=== PATIENT | male | born 1970 | race Caucasian/White ===

== ENCOUNTER 2019-04-02 12:44 | Inpatient (IN) | payer OTHER ==
[2019-04-02 15:27] VITALS: BMI 31.2
--- NOTE | 2019-04-02 17:20 | HP ---
CIWA Score Nausea/Vomitin-Mild Nausea/No Vomiting Muscle Tremors: 3 Anxiety: 4-Mod. Anxious/Guarded Agitation: 2 Paroxysmal Sweats: 3 Orientation: 0-Oriented Tacttile Disturbances: 0-None Auditory Disturbances: 0-None Visual Disturbances: 0-None Headache: 3-Moderate CIWA-Ar Total Score: 16 - Admission Criteria OASAS Guidelines: Admission for Medically Managed Detox: Requires at least one of the followin. CIWA greater than 12 2. Seizures within the past 24 hours 3. Delirium tremens within the past 24 hours 4. Hallucinations within the past 24 hours 5. Acute intervention needed for co occurring medical disorder 6. Acute intervention needed for co occurring psychiatric disorder 7. Severe withdrawal that cannot be handled at a lower level of care (continued vomiting, continued diarrhea, abnormal vital signs) requiring intravenous medication and/or fluids 8. Admission [facility] Chief Complaint: Alcohol withdrawal symptoms Allergies/Adverse Reactions: Allergies Allergy/AdvReac Type Severity Reaction Status Date / Time Fish Containing Products Allergy Severe Swelling Verified 04/02/19 14:36 Penicillins Allergy Severe Hives Verified 04/02/19 14:36 History of Present Illness: 48 years old male with a long history of alcohol dependence (since age 11) is seeking admission to detox. Patient reports that he has been to multiple detox facilities, last at [facility]. He reports 10 years of sobriety (while in shelter for attempted murder). He has medical history of Alcohol related seizures, Neuropathy, hyperlipidemia and psych history of depression and bipolar disorder. He denies suicide attempt and suicidal ideation at this time. He reports that he is homeless and lives [address]. He reports DT's, alcohol related seizures and blackout. Last blackout was on 03/30/2019. Last seizure activity was in February 2019. This is his first admission to [facility]. - Ebola screening Have you traveled outside of the country in the last 21 days: No Have you had contact with anyone from an Ebola affected area: No - Review of Systems Constitutional: Chills, Malaise, Night Sweats, Changes in sleep, Weakness EENT: reports: Nose Congestion Respiratory: reports: No Symptoms reported Cardiac: reports: No Symptoms Reported GI: reports: Nausea, Poor Appetite, Poor Fluid Intake : reports: No Symptoms Reported Musculoskeletal: reports: Back Pain, Muscle Pain Integumentary: reports: Dryness, Flushing Neuro: reports: Headache, Tremors Endocrine: reports: No Symptoms Reported Hematology: reports: No Symptoms Reported Psychiatric: reports: Mood/Affect Appropiate, Anxious, Depressed Other Systems: Reviewed and Negative Patient History - Patient Medical History Hx Anemia: No Hx Asthma: No Hx Chronic Obstructive Pulmonary Disease (COPD): No Hx Cancer: No Hx Cardiac Disorders: No Hx Congestive Heart Failure: No Hx Hypertension: No Hx Hypercholesterolemia: Yes (Not on medication) Hx Pacemaker: No HX Cerebrovascular Accident: No Hx Seizures: No Hx Diabetes: No Hx Gastrointestinal Disorders: No Hx Liver Disease: No Hx Genitourinary Disorders: No Hx Sexually Transmitted Disorders: No Hx Renal Disease (ESRD): No Hx Thyroid Disease: No Hx Human Immunodeficiency Virus (HIV): No (Negative 2018) Hx Hepatitis C: No Hx Depression: Yes (Lexapro) Hx Suicide Attempt: No (Denies suicide attempt and suicidal ideation at this time) Hx Bipolar Disorder: Yes (Abilify) Hx Schizophrenia: No - Patient Surgical History Past Surgical History: Yes Hx Orthopedic Surgery: Yes (Spinal cord surgery January 2018) - PPD History Previous Implant?: Yes Documented Results: Negative w/o proof Implanted On Prior [facility] Admission?: Yes PPD to be Administered?: Yes - Reproductive History Patient is a Female of Child Bearing Age (11 -55 yrs old): No (male) - Smoking Cessation Smoking history: Current every day smoker Have you smoked in the past 12 months: Yes Aproximately how many cigarettes per day: 20 Hx Chewing Tobacco Use: No Initiated information on smoking cessation: Yes 'Breaking Loose' booklet given: 04/02/19 - Substances abused Alcohol Substance route: Oral Frequency: Daily Amount used: 2 pints of vodka, 12 pack beer Age of first use: 11 Date of last use: 04/02/19 Admission Physical Exam [facility] - Vital Signs Vital Signs: Vital Signs - 24 hr 04/02/19 15:20 Temperature 98.3 F Pulse Rate 107 H Respiratory 18 Rate Blood Pressure 112/69 - Physical General Appearance: Yes: Severe Distress, Alcohol on Breath, Tremorous, Sweating , Anxious HEENTM: Yes: Within Normal Limits Respiratory: Yes: Lungs Clear, Normal Breath Sounds, No Respiratory Distress Neck: Yes: Within Normal Limits Breast: Yes: Breast Exam Deferred Cardiology: Yes: Tachycardia Abdominal: Yes: Normal Bowel Sounds Genitourinary: Yes: Within Normal Limits Musculoskeletal: Yes: Within Normal Limits Extremities: Yes: Tremors Integumentary: Yes: Warm Lymphatic: Yes: Within Normal Limits - Diagnostic (1) Alcohol dependence with withdrawal, uncomplicated Current Visit: Yes Status: Acute (2) Nicotine dependence Current Visit: Yes Status: Chronic Qualifiers: Nicotine product type: cigarettes Substance use status: in withdrawal Qualified Code(s): F17.213 - Nicotine dependence, cigarettes, with withdrawal (3) Hyperlipidemia Current Visit: Yes Status: Chronic Qualifiers: Hyperlipidemia type: unspecified Qualified Code(s): E78.5 - Hyperlipidemia , unspecified (4) Neuropathy Current Visit: Yes Status: Chronic Cleared for Admission [facility] - Detox or Rehab [facility] Level of Care: Medically Managed Detox Regimen/Protocol: Valium Claeared for Rehab Admission: No Inpatient Rehab Admission - Rehab Decision to Admit Inpatient rehab admission?: No
[2019-04-02] MEDS ORDERED: MAGNESIUM HYDROX 2400MG/30ML ORAL SUSPENSION 30 ML CUP PO PRN (17:41)
[2019-04-02] MEDS ORDERED: MAG HYDROX/AL HYDROX/SIMETH 30 ML UNIT-DOSE CUP PO PRN (17:41)
[2019-04-02] MEDS ORDERED: hydrOXYzine PAMOATE 25 MG CAPSULE (FP) PO PRN (17:41)
[2019-04-02] MEDS ORDERED: BISMUTH SUBSALICYLATE 524 MG/30 ML UD PO PRN (17:41)
[2019-04-02] MEDS ORDERED: MENTHOL/PHENOL 1 EACH UD MM PRN (17:41)
[2019-04-02] MEDS ORDERED: METHOCARBAMOL 500 MG TABLET PO PRN (17:41)
[2019-04-02] MEDS ORDERED: ACETAMINOPHEN 325 MG TABLET (FP) PO PRN ×2 (17:41)
[2019-04-02] MEDS ORDERED: NICOTINE POLACRILEX 2 MG GUM BUC PRN (17:41)
[2019-04-02] MEDS ORDERED: MAGNESIUM CITRATE 300 ML BOTTLE PO PRN (17:41)
[2019-04-02] MEDS ORDERED: MELATONIN 5 MG TABLETS PO PRN (17:41)
[2019-04-02] MEDS ORDERED: IBUPROFEN 400 MG TABLET (FP) PO PRN (17:41)
[2019-04-02] MEDS ORDERED: diazePAM 5 MG TABLET PO ONE (18:15)
[2019-04-02] MEDS: GABAPENTIN 300 MG CAPSULE (FP) PO SCH (23:27)
[2019-04-02] MEDS: THIAMINE HCL 100 MG TABLET (FP) PO SCH (23:28)
[2019-04-02] MEDS: diazePAM 5 MG TABLET PO SCH (23:28)
[2019-04-03] MEDS: diazePAM 5 MG TABLET PO PRN (02:58)
[2019-04-03] MEDS: GABAPENTIN 300 MG CAPSULE (FP) PO SCH ×3 (05:32→22:00)
[2019-04-03] MEDS: diazePAM 5 MG TABLET PO SCH ×3 (05:33→22:01)
--- NOTE | 2019-04-03 09:32 | PN ---
S CIWA - CIWA Score Nausea/Vomitin-No Nausea/No Vomiting Muscle Tremors: 2 Anxiety: 3 Agitation: 2 Paroxysmal Sweats: 1-Minimal Palms Moist Orientation: 0-Oriented Tacttile Disturbances: 2-Mild Itch/Numbness/Burn Auditory Disturbances: 0-None Visual Disturbances: 0-None Headache: 0-None Present CIWA-Ar Total Score: 10 BHS Progress Note (SOAP) Subjective: Patient with hx of alcohol dependence on Valium detox protocol c/o anxious, interrupted sleep, denies pain at this time Objective: 04/03/19 09:31 Vital Signs Temperature 97.9 F 04/03/19 09:22 Pulse Rate 102 H 04/03/19 09:22 Respiratory Rate 18 04/03/19 09:22 Blood Pressure 143/82 04/03/19 09:22 O2 Sat by Pulse Oximetry (%) labs pending Assessment: 04/03/19 09:31 Aox3 no acute distress full ROM ambulating in the unit withdrawal sx Plan: increase PO fluids continue detox continue to monitor
--- NOTE | 2019-04-03 09:52 | CONSULT ---
[facility] Psychiatric Consult - Data Date of interview: 04/03/19 Admission source: [facility] Identifying data: Mr Reyes is a 48 years old male, father of 2 sons, unemployed receiving food stamp, homeless seeking detox treatment alcohol Substance Abuse History: Reports history of alcohol use. Refer to addiction counselor's summary for further information Medical History: Significant dyslipidemia, neuropathy, history of alcohol related seizure, surgeries(spinal cord in 2018, fracture right ankle). Smokes cigarettes 1 ppd Psychiatric History: Reports that his first psychiatric contact occured at age 15 when he was admitted to [facility] in [place], [place], diagnosed with Bipolar Disorder and started on psychotropic medications. Claims that he was tried on different medications and finally discharged on [place]. Reports that he was never compliant with outpatient psychiatric treatment. Told junior technical writer that while admitted at [facility] for pneumonia, he requested to see a psychiatrist and he was started on Lexapro and Abilify. He was discharged to [facility] where he was continued on both medications. He said that following discharge from [facility], he stopped taking Abilify 5 mg/day because his insurance coverage refused to pay for it. He is only taking Lexapro 20 mg/day. Denies previous suicidal attempt. At present, denies experiencing psychotic, manic or depressive symptoms, S/H ideations. Requests to be ordered Seroquel to which he responded well in the past Physical/Sexual Abuse/Trauma History: Denies history of abuse as a child or DV relationship as an adult Mental Status Exam - Mental Status Exam Alert and Oriented to: Time, Place, Person Cognitive Function: Fair Patient Appearance: Disheveled Mood: Hopeful, Euthymic Patient Behavior: Cooperative Speech Pattern: Clear Voice Loudness: Normal Thought Process: Intact, Goal Oriented Thought Disorder: Not Present Hallucinations: Denies Suicidal Ideation: Denies Homicidal Ideation: Denies Insight/Judgement: Poor Sleep: Well Appetite: Good Muscle strength/Tone: Normal Gait/Station: Normal Psychiatric Findings - Problem List ([place] 1, 2,3) (1) Bipolar disorder Current Visit: Yes Status: Chronic (2) Alcohol dependence with withdrawal, uncomplicated Current Visit: Yes Status: Acute (3) Nicotine dependence Current Visit: Yes Status: Chronic Qualifiers: Nicotine product type: cigarettes Substance use status: in withdrawal Qualified Code(s): F17.213 - Nicotine dependence, cigarettes, with withdrawal (4) Hyperlipidemia Current Visit: Yes Status: Chronic Qualifiers: Hyperlipidemia type: unspecified Qualified Code(s): E78.5 - Hyperlipidemia , unspecified (5) Neuropathy Current Visit: Yes Status: Chronic (6) Alcohol related seizure Current Visit: Yes Status: Resolved - Initial Treatment Plan Initial Treatment Plan: 1) Continue Lexapro 20 mg po daily. 2) Start Seroquel 100 mg po HS. 3) Continue inpatient detoxification
[2019-04-03] MEDS: NICOTINE 21 MG/24 HOURS TOPICAL PATCH TD SCH (09:59)
[2019-04-03] MEDS: PRENATAL VITAMINS W/ FOLIC ACID TABLET (FP) PO SCH (09:59)
[2019-04-03] MEDS: ESCITALOPRAM OXALATE 10 MG TABLET (FP) PO SCH (10:31)
[2019-04-03 10:43] LABS: HEMATOCRIT 36.2 % (35.4-49); HEMOGLOBIN 11.5 GM/dL (11.7-16.9); MCH 29.3 pg (25.7-33.7); MCHC 31.8 g/dl (32.0-35.9); MEAN CELL VOLUME 92.2 fl (80-96); MEAN PLT VOLUME 7.3 fl (7.5-11.1); PLATELET COUNT 447 K/MM3 (134-434); RBC 3.93 M/mm3 (4.00-5.60); RDW 15.2 % (11.9-15.9); WHITE BLOOD COUNT 12.5 K/mm3 (4.0-10.0)
[2019-04-03 10:57] LABS: ALBUMIN 2.9 g/dl (3.4-5.0); BILIRUBIN,TOTAL 0.3 mg/dL (0.2-1); BLOOD UREA NITROGEN 21.3 mg/dL (7-18); CALCIUM 8.4 mg/dL (8.5-10.1); CREATININE 0.8 mg/dL (0.55-1.3); POTASSIUM 4.3 mmol/L (3.5-5.1); TOT PROT 6.2 g/dl (6.4-8.2)
--- NOTE | 2019-04-03 11:54 | EKG ---
Test Reason : Blood Pressure : / mmHG Vent. Rate : 095 BPM Atrial Rate : 095 BPM P-R Int : 174 ms QRS Dur : 076 ms QT Int : 346 ms P-R-T Axes : 059 060 071 degrees QTc Int : 434 ms NORMAL SINUS RHYTHM NORMAL ECG NO PREVIOUS ECGS AVAILABLE Confirmed by MORENA LEVINE MD ([id number]) on 04/03/2019 11:53:38 AM Referred By: Confirmed By:MORENA LEVINE MD
[2019-04-03] MEDS ORDERED: QUEtiapine FUMARATE 100 MG TABLET (FP) PO SCH (22:00)
[2019-04-03] MEDS: THIAMINE HCL 100 MG TABLET (FP) PO SCH (22:01)
[2019-04-04] MEDS ORDERED: diazePAM 5 MG TABLET PO SCH (06:00)
[2019-04-04] MEDS: GABAPENTIN 300 MG CAPSULE (FP) PO SCH ×2 (07:43→14:04)
[2019-04-04] MEDS: NICOTINE 21 MG/24 HOURS TOPICAL PATCH TD SCH (09:42)
[2019-04-04] MEDS: PRENATAL VITAMINS W/ FOLIC ACID TABLET (FP) PO SCH (09:42)
[2019-04-04] MEDS: ESCITALOPRAM OXALATE 10 MG TABLET (FP) PO SCH (09:42)
[2019-04-04] MEDS: diazePAM 5 MG TABLET PO PRN (09:45)
[2019-04-04 10:09] VITALS: BP 137/89; PULSE 95; TEMP 98.6
[2019-04-04 10:45] LABS: HEMATOCRIT 38.7 % (35.4-49); HEMOGLOBIN 12.4 GM/dL (11.7-16.9); MCH 29.8 pg (25.7-33.7); MEAN CELL VOLUME 93.2 fl (80-96); MEAN PLT VOLUME 7.5 fl (7.5-11.1); PLATELET COUNT 378 K/MM3 (134-434); RBC 4.16 M/mm3 (4.00-5.60); RDW 15.2 % (11.9-15.9); WHITE BLOOD COUNT 10.7 K/mm3 (4.0-10.0)
--- NOTE | 2019-04-04 11:05 | PN ---
[facility] CIWA - CIWA Score Nausea/Vomitin-No Nausea/No Vomiting Muscle Tremors: None Anxiety: 2 Agitation: 1-Slight > Activity Paroxysmal Sweats: 1-Minimal Palms Moist Orientation: 0-Oriented Tacttile Disturbances: 1-Very Mild Itch/Numbness Auditory Disturbances: 0-None Visual Disturbances: 0-None Headache: 0-None Present CIWA-Ar Total Score: 5 BHS Progress Note (SOAP) Subjective: c/o of anxious , body aches, reports improve in sleep Objective: 04/04/19 11:01 Vital Signs Temperature 98.6 F 04/04/19 10:08 Pulse Rate 95 H 04/04/19 10:08 Respiratory Rate 18 04/04/19 10:08 Blood Pressure 137/89 04/04/19 10:08 O2 Sat by Pulse Oximetry (%) Laboratory Last Values WBC 10.7 K/mm3 (4.0-10.0) H 04/04/19 07:45 RBC 4.16 M/mm3 (4.00-5.60) 04/04/19 07:45 Hgb 12.4 GM/dL (11.7-16.9) 04/04/19 07:45 Hct 38.7 % (35.4-49) 04/04/19 07:45 MCV 93.2 fl (80-96) 04/04/19 07:45 MCH 29.8 pg (25.7-33.7) 04/04/19 07:45 MCHC 32.0 g/dl (32.0-35.9) 04/04/19 07:45 RDW 15.2 % (11.9-15.9) 04/04/19 07:45 Plt Count 378 K/MM3 (134-434) 04/04/19 07:45 MPV 7.5 fl (7.5-11.1) 04/04/19 07:45 Sodium 139 mmol/L (136-145) 04/03/19 08:15 Potassium 4.3 mmol/L (3.5-5.1) 04/03/19 08:15 Chloride 106 mmol/L (98-107) 04/03/19 08:15 Carbon Dioxide 27 mmol/L (21-32) 04/03/19 08:15 Anion Gap 6 MMOL/L (8-16) L 04/03/19 08:15 BUN 21.3 mg/dL (7-18) H 04/03/19 08:15 Creatinine 0.8 mg/dL (0.55-1.3) 04/03/19 08:15 Est GFR (CKD-EPI)AfAm 120.72 04/03/19 08:15 Est GFR (CKD-EPI)NonAf 104.16 04/03/19 08:15 Random Glucose 77 mg/dL (74-106) 04/03/19 08:15 Calcium 8.4 mg/dL (8.5-10.1) L 04/03/19 08:15 Total Bilirubin 0.3 mg/dL (0.2-1) 04/03/19 08:15 AST 22 U/L (15-37) 04/03/19 08:15 ALT 33 U/L (13-61) 04/03/19 08:15 Alkaline Phosphatase 85 U/L (45-117) 04/03/19 08:15 Total Protein 6.2 g/dl (6.4-8.2) L 04/03/19 08:15 Albumin 2.9 g/dl (3.4-5.0) L 04/03/19 08:15 RPR Titer Nonreactive (NONREACTIVE) 04/03/19 08:15 Assessment: 04/04/19 11:01 Aox3 acute distress EENT WNL Full ROM no gait disturbance withdrawal sx Plan: increase fluids continue detox Patient to follow up with primary care provider upon discharge re: asymptomatic mild leukocytosis. continue to monitor
--- NOTE | 2019-04-04 15:30 | DS ---
[facility] Detox Discharge Summary Admission Date: 04/02/19 Discharge Date: 04/04/19 - History Present History: Alcohol Dependence - Physical Exam Results Vital Signs: Vital Signs Temperature 98.6 F 04/04/19 10:08 Pulse Rate 95 H 04/04/19 10:08 Respiratory Rate 18 04/04/19 10:08 Blood Pressure 137/89 04/04/19 10:08 O2 Sat by Pulse Oximetry (%) Pertinent Admission Physical Exam Findings: Vital Signs Temperature 98.6 F 04/04/19 10:08 Pulse Rate 95 H 04/04/19 10:08 Respiratory Rate 18 04/04/19 10:08 Blood Pressure 137/89 04/04/19 10:08 O2 Sat by Pulse Oximetry (%) Laboratory Tests 04/03/19 04/03/19 04/03/19 08:15 08:15 08:15 WBC 12.5 H RBC 3.93 L Hgb 11.5 L Hct 36.2 MCV 92.2 MCH 29.3 MCHC 31.8 L RDW 15.2 Plt Count 447 H MPV 7.3 L Sodium 139 Potassium 4.3 Chloride 106 Carbon Dioxide 27 Anion Gap 6 L BUN 21.3 H Creatinine 0.8 Est GFR (CKD-EPI)AfAm 120.72 Est GFR (CKD-EPI)NonAf 104.16 Random Glucose 77 Calcium 8.4 L Total Bilirubin 0.3 AST 22 ALT 33 Alkaline Phosphatase 85 Total Protein 6.2 L Albumin 2.9 L RPR Titer Nonreactive 04/04/19 07:45 WBC 10.7 H RBC 4.16 Hgb 12.4 Hct 38.7 MCV 93.2 MCH 29.8 MCHC 32.0 RDW 15.2 Plt Count 378 MPV 7.5 Sodium Potassium Chloride Carbon Dioxide Anion Gap BUN Creatinine Est GFR (CKD-EPI)AfAm Est GFR (CKD-EPI)NonAf Random Glucose Calcium Total Bilirubin AST ALT Alkaline Phosphatase Total Protein Albumin RPR Titer aaox3 ambulating no acute distress - Treatment Hospital Course: Detox Protocol Followed, Detoxed Safely, Responded well, Discharged Condition Good, Rehab Referral Accepted Patient has Accepted a Rehab Referral to: pt declined rehab; referral provided - Medication Discharge Medications: Ambulatory Orders Escitalopram Oxalate [Lexapro -] 10 mg PO DAILY 04/02/19 Folic Acid 1 mg PO HS 04/02/19 Gabapentin 600 mg PO TID 04/02/19 predniSONE [Deltasone -] 30 mg PO DAILY 04/02/19 - Diagnosis (1) Alcohol dependence with withdrawal, uncomplicated Current Visit: Yes Status: Chronic (2) Bipolar disorder Current Visit: Yes Status: Chronic (3) Hyperlipidemia Current Visit: Yes Status: Chronic Qualifiers: Hyperlipidemia type: unspecified Qualified Code(s): E78.5 - Hyperlipidemia , unspecified (4) Neuropathy Current Visit: Yes Status: Chronic (5) Nicotine dependence Current Visit: Yes Status: Chronic Qualifiers: Nicotine product type: cigarettes Substance use status: in withdrawal Qualified Code(s): F17.213 - Nicotine dependence, cigarettes, with withdrawal (6) Alcohol related seizure Current Visit: Yes Status: Resolved - AMA Did Patient Leave Against Medical Advice: No
[2019-04-05] MEDS ORDERED: diazePAM 5 MG TABLET PO ONE (06:00)
== END 2019-04-04 15:31 | disposition home or self-care (01) | DRG 775 ==
LOC: YASAS 12:44 → Y6N 17:58
PROVIDERS: ADMIT Allergy & Immunology; ATTEND Allergy & Immunology
PROC: HZ2ZZZZ Detoxification Services for Substance Abuse Treatment (ICD-10-PCS; principal; 2019-04-02)
DX: F10.230 Alcohol dependence with withdrawal, uncomplicated (principal); F17.213 Nicotine dependence, cigarettes, with withdrawal; F31.9 Bipolar disorder, unspecified; E78.5 Hyperlipidemia, unspecified; G62.9 Polyneuropathy, unspecified; R00.0 Tachycardia, unspecified; Z86.69 Personal history of other diseases of the nervous system and sense organs; Z88.0 Allergy status to penicillin; Z91.013 Allergy to seafood; Z59.0 Homelessness
CPT/HCPCS: 36415; 80053; 85027; 86593; 93005; 93010

== ENCOUNTER 2022-12-05 14:21 | Inpatient (IN) | payer OTHER ==
[2022-12-05 15:05] VITALS: BMI 27.9
[2022-12-05] MEDS ORDERED: MAG HYDROX/AL HYDROX/SIMETH 30 ML UNIT-DOSE CUP PO PRN (17:55)
[2022-12-05] MEDS ORDERED: ONDANSETRON *ODT* 4 MG TABLET SL PRN (17:55)
[2022-12-05] MEDS ORDERED: POLYETHYLENE GLYCOL (HEALTHYLAX) 3350 17 GM PACKET PO PRN (17:55)
[2022-12-05] MEDS ORDERED: LOPERAMIDE HCL 2 MG CAPSULE PO PRN (17:55)
[2022-12-05] MEDS ORDERED: BISMUTH SUBSALICYLATE 524 MG/30 ML PO PRN (17:55)
[2022-12-05] MEDS ORDERED: ACETAMINOPHEN 325 MG TABLET (FP) PO PRN (17:55)
[2022-12-05] MEDS ORDERED: BENZOCAINE/MENTHOL (CHLORASEPTIC ) LOZENGE MM PRN (17:55)
[2022-12-05] MEDS ORDERED: guaiFENesin 600 MG TABLET.ER (FP) PO PRN (17:55)
[2022-12-05] MEDS ORDERED: DICYCLOMINE HCL 10 MG CAPSULE PO PRN (17:55)
[2022-12-05] MEDS ORDERED: IBUPROFEN 600 MG TABLET (FP) PO PRN (17:55)
[2022-12-05] MEDS ORDERED: IBUPROFEN 400 MG TABLET (FP) PO PRN (17:55)
[2022-12-05] MEDS ORDERED: P-EPHED 60MG/TRIPROLIDI 2.5MG TABLET PO PRN (17:55)
[2022-12-05] MEDS ORDERED: MAGNESIUM HYDROX 2400MG/30ML ORAL SUSPENSION 30 ML CUP PO PRN (17:55)
[2022-12-05] MEDS ORDERED: BENZONATATE 200 MG CAPSULE PO PRN (17:55)
[2022-12-05] MEDS: THIAMINE HCL 100 MG TABLET (FP) PO SCH (22:25)
[2022-12-05] MEDS: MELATONIN 5 MG TABLETS PO SCH (22:25)
[2022-12-06] MEDS: hydrOXYzine PAMOATE 25 MG CAPSULE (FP) PO PRN (06:12)
[2022-12-06] MEDS: METHOCARBAMOL 500 MG TABLET PO PRN (06:12)
[2022-12-06] MEDS ORDERED: chlordiazePOXIDE HCL 25 MG CAPSULE PO PRN (09:01)
[2022-12-06] MEDS: PRENATAL VITAMINS W/ FOLIC ACID TABLET (FP) PO SCH (10:31)
[2022-12-06] MEDS: chlordiazePOXIDE HCL 25 MG CAPSULE PO SCH ×3 (10:31→22:52)
[2022-12-06 15:16] LABS: HEMATOCRIT 40.7 % (35.4-49); HEMOGLOBIN 13.2 GM/dL (11.7-16.9); MCH 28.1 pg (25.7-33.7); MCHC 32.5 g/dl (32.0-35.9); MEAN CELL VOLUME 86.6 fl (80-96); MEAN PLT VOLUME 7.7 fl (7.5-11.1); PLATELET COUNT 315 10^3/uL (134-434); RDW 16.4 % (11.9-15.9); WHITE BLOOD COUNT 7.1 K/mm3 (4.0-10.0)
[2022-12-06 15:36] LABS: POTASSIUM 4.1 mmol/L (3.5-5.1)
[2022-12-06 15:40] LABS: ALBUMIN 3.2 g/dl (3.4-5.0); CALCIUM 8.3 mg/dL (8.5-10.1)
[2022-12-06 15:44] LABS: CREATININE 0.9 mg/dL (0.55-1.3)
[2022-12-06 15:46] LABS: BILIRUBIN,TOTAL 0.8 mg/dL (0.2-1); TOT PROT 6.5 g/dl (6.4-8.2)
[2022-12-06] MEDS: THIAMINE HCL 100 MG TABLET (FP) PO SCH (22:58)
[2022-12-06] MEDS: MELATONIN 5 MG TABLETS PO SCH (22:58)
[2022-12-07] MEDS: chlordiazePOXIDE HCL 25 MG CAPSULE PO SCH ×4 (06:01→22:40)
[2022-12-07] MEDS: PRENATAL VITAMINS W/ FOLIC ACID TABLET (FP) PO SCH (10:43)
[2022-12-07] MEDS: MELATONIN 5 MG TABLETS PO SCH (22:39)
[2022-12-07] MEDS: METHOCARBAMOL 500 MG TABLET PO PRN (22:40)
[2022-12-07] MEDS: THIAMINE HCL 100 MG TABLET (FP) PO SCH (22:40)
[2022-12-07] MEDS: hydrOXYzine PAMOATE 25 MG CAPSULE (FP) PO PRN (22:40)
[2022-12-08] MEDS: chlordiazePOXIDE HCL 25 MG CAPSULE PO SCH ×4 (06:30→22:35)
[2022-12-08] MEDS: PRENATAL VITAMINS W/ FOLIC ACID TABLET (FP) PO SCH (10:32)
[2022-12-08] MEDS: MELATONIN 5 MG TABLETS PO SCH (22:35)
[2022-12-08] MEDS: THIAMINE HCL 100 MG TABLET (FP) PO SCH (22:35)
[2022-12-09] MEDS ORDERED: chlordiazePOXIDE HCL 10 MG CAPSULE PO PRN
[2022-12-09] MEDS: chlordiazePOXIDE HCL 10 MG CAPSULE PO SCH ×4 (05:59→22:59)
[2022-12-09] MEDS: PRENATAL VITAMINS W/ FOLIC ACID TABLET (FP) PO SCH (10:31)
[2022-12-09] MEDS: THIAMINE HCL 100 MG TABLET (FP) PO SCH (22:59)
[2022-12-09] MEDS: MELATONIN 5 MG TABLETS PO SCH (22:59)
[2022-12-10] MEDS: chlordiazePOXIDE HCL 10 MG CAPSULE PO SCH ×2 (05:31→17:52)
[2022-12-10] MEDS: PRENATAL VITAMINS W/ FOLIC ACID TABLET (FP) PO SCH (10:31)
[2022-12-10 17:02] VITALS: RESP 18
[2022-12-10] MEDS: THIAMINE HCL 100 MG TABLET (FP) PO SCH (22:58)
[2022-12-10] MEDS: MELATONIN 5 MG TABLETS PO SCH (22:58)
[2022-12-11] MEDS ORDERED: chlordiazePOXIDE HCL 10 MG CAPSULE PO ONE (05:00)
[2022-12-11] MEDS: PRENATAL VITAMINS W/ FOLIC ACID TABLET (FP) PO SCH (10:18)
[2022-12-11 13:00] VITALS: BP 113/72; PULSE 78; TEMP 97.7
== END 2022-12-11 16:41 | disposition other institution (70) | DRG 775 ==
LOC: YASAS 14:21 → Y3N 17:58
PROVIDERS: ADMIT Allergy & Immunology; ATTEND Surgery
PROC: HZ2ZZZZ Detoxification Services for Substance Abuse Treatment (ICD-10-PCS; principal; 2022-12-05)
DX: F10.230 Alcohol dependence with withdrawal, uncomplicated (principal); F17.210 Nicotine dependence, cigarettes, uncomplicated
CPT/HCPCS: 36415; 80053; 83036; 85027; 86780; 87635

== ENCOUNTER 2022-12-11 16:55 | Inpatient (IN) | payer OTHER ==
[2022-12-11] MEDS ORDERED: MAG HYDROX/AL HYDROX/SIMETH 30 ML UNIT-DOSE CUP PO PRN (18:16)
[2022-12-11] MEDS ORDERED: BENZONATATE 200 MG CAPSULE PO PRN (18:16)
[2022-12-11] MEDS ORDERED: MAGNESIUM HYDROX 2400MG/30ML ORAL SUSPENSION 30 ML CUP PO PRN (18:16)
[2022-12-11] MEDS ORDERED: IBUPROFEN 400 MG TABLET (FP) PO PRN (18:16)
[2022-12-11] MEDS ORDERED: ACETAMINOPHEN 325 MG TABLET (FP) PO PRN (18:16)
[2022-12-11] MEDS ORDERED: POLYETHYLENE GLYCOL (HEALTHYLAX) 3350 17 GM PACKET PO PRN (18:16)
[2022-12-11] MEDS ORDERED: LOPERAMIDE HCL 2 MG CAPSULE PO PRN (18:16)
[2022-12-11] MEDS ORDERED: P-EPHED 60MG/TRIPROLIDI 2.5MG TABLET PO PRN (18:16)
[2022-12-11] MEDS ORDERED: BENZOCAINE/MENTHOL (CHLORASEPTIC ) LOZENGE MM PRN (18:16)
[2022-12-11] MEDS ORDERED: AMMONIUM LACTATE 12% LOTION 225 GM BOTTLE TP PRN (18:16)
[2022-12-11] MEDS ORDERED: IBUPROFEN 600 MG TABLET (FP) PO PRN (18:16)
[2022-12-11] MEDS ORDERED: METHOCARBAMOL 500 MG TABLET PO PRN (18:16)
[2022-12-11] MEDS ORDERED: COLLOIDAL OATMEAL 1 BAR EACH TP PRN (18:16)
[2022-12-11] MEDS ORDERED: guaiFENesin 600 MG TABLET.ER (FP) PO PRN (18:16)
[2022-12-11] MEDS: MELATONIN 5 MG TABLETS PO SCH (21:24)
[2022-12-11] MEDS: THIAMINE HCL 100 MG TABLET (FP) PO SCH (21:24)
[2022-12-11] MEDS: hydrOXYzine PAMOATE 25 MG CAPSULE (FP) PO PRN (21:24)
[2022-12-12] MEDS: PRENATAL VITAMINS W/ FOLIC ACID TABLET (FP) PO SCH (10:10)
[2022-12-12] MEDS: THIAMINE HCL 100 MG TABLET (FP) PO SCH (21:41)
[2022-12-12] MEDS: MELATONIN 5 MG TABLETS PO SCH (21:41)
[2022-12-13] MEDS: PRENATAL VITAMINS W/ FOLIC ACID TABLET (FP) PO SCH (10:25)
[2022-12-13] MEDS: THIAMINE HCL 100 MG TABLET (FP) PO SCH (21:26)
[2022-12-13] MEDS: MELATONIN 5 MG TABLETS PO SCH (21:26)
[2022-12-13] MEDS: hydrOXYzine PAMOATE 25 MG CAPSULE (FP) PO PRN (21:27)
[2022-12-14] MEDS: PRENATAL VITAMINS W/ FOLIC ACID TABLET (FP) PO SCH (10:30)
[2022-12-14] MEDS: THIAMINE HCL 100 MG TABLET (FP) PO SCH ×2 (21:42→22:00)
[2022-12-14] MEDS: MELATONIN 5 MG TABLETS PO SCH ×2 (21:42→22:00)
[2022-12-14] MEDS: hydrOXYzine PAMOATE 25 MG CAPSULE (FP) PO PRN (22:01)
[2022-12-15] MEDS: PRENATAL VITAMINS W/ FOLIC ACID TABLET (FP) PO SCH (10:12)
[2022-12-15] MEDS: MELATONIN 5 MG TABLETS PO SCH ×2 (21:18→21:41)
[2022-12-15] MEDS: THIAMINE HCL 100 MG TABLET (FP) PO SCH ×2 (21:18→21:40)
[2022-12-15] MEDS: hydrOXYzine PAMOATE 25 MG CAPSULE (FP) PO PRN (21:41)
[2022-12-16] MEDS: PRENATAL VITAMINS W/ FOLIC ACID TABLET (FP) PO SCH (11:07)
[2022-12-16] MEDS: hydrOXYzine PAMOATE 25 MG CAPSULE (FP) PO PRN (21:18)
[2022-12-16] MEDS: MELATONIN 5 MG TABLETS PO SCH (21:18)
[2022-12-16] MEDS: THIAMINE HCL 100 MG TABLET (FP) PO SCH (21:18)
[2022-12-17] MEDS: PRENATAL VITAMINS W/ FOLIC ACID TABLET (FP) PO SCH (10:05)
[2022-12-17] MEDS: MELATONIN 5 MG TABLETS PO SCH (21:36)
[2022-12-17] MEDS: THIAMINE HCL 100 MG TABLET (FP) PO SCH (21:36)
[2022-12-18] MEDS: PRENATAL VITAMINS W/ FOLIC ACID TABLET (FP) PO SCH (10:02)
[2022-12-18] MEDS ORDERED: PRENATAL VITAMINS W/ FOLIC ACID TABLET (FP) PO PRN (12:52)
[2022-12-18] MEDS: THIAMINE HCL 100 MG TABLET (FP) PO SCH (21:18)
[2022-12-18] MEDS: MELATONIN 5 MG TABLETS PO SCH (21:18)
[2022-12-19] MEDS: THIAMINE HCL 100 MG TABLET (FP) PO SCH (21:06)
[2022-12-19] MEDS: hydrOXYzine PAMOATE 25 MG CAPSULE (FP) PO PRN (21:06)
[2022-12-19] MEDS: MELATONIN 5 MG TABLETS PO SCH (21:06)
[2022-12-20] MEDS: THIAMINE HCL 100 MG TABLET (FP) PO SCH (21:18)
[2022-12-20] MEDS: MELATONIN 5 MG TABLETS PO SCH (21:18)
[2022-12-20] MEDS: hydrOXYzine PAMOATE 25 MG CAPSULE (FP) PO PRN (21:19)
[2022-12-21] MEDS: hydrOXYzine PAMOATE 25 MG CAPSULE (FP) PO PRN (21:20)
[2022-12-21] MEDS: THIAMINE HCL 100 MG TABLET (FP) PO SCH (21:20)
[2022-12-21] MEDS: MELATONIN 5 MG TABLETS PO SCH (21:20)
[2022-12-22] MEDS: THIAMINE HCL 100 MG TABLET (FP) PO SCH (21:26)
[2022-12-22] MEDS: MELATONIN 5 MG TABLETS PO SCH (21:26)
[2022-12-22] MEDS: hydrOXYzine PAMOATE 25 MG CAPSULE (FP) PO PRN (21:26)
[2022-12-23] MEDS: THIAMINE HCL 100 MG TABLET (FP) PO SCH (21:16)
[2022-12-23] MEDS: MELATONIN 5 MG TABLETS PO SCH (21:16)
[2022-12-23] MEDS: hydrOXYzine PAMOATE 25 MG CAPSULE (FP) PO PRN (21:17)
[2022-12-24] MEDS: THIAMINE HCL 100 MG TABLET (FP) PO SCH (21:24)
[2022-12-24] MEDS: MELATONIN 5 MG TABLETS PO SCH (21:24)
[2022-12-24] MEDS: hydrOXYzine PAMOATE 25 MG CAPSULE (FP) PO PRN (21:25)
[2022-12-25] MEDS: MELATONIN 5 MG TABLETS PO SCH (21:20)
[2022-12-25] MEDS: THIAMINE HCL 100 MG TABLET (FP) PO SCH (21:20)
[2022-12-25] MEDS: hydrOXYzine PAMOATE 25 MG CAPSULE (FP) PO PRN (21:21)
[2022-12-26] MEDS: THIAMINE HCL 100 MG TABLET (FP) PO SCH (21:13)
[2022-12-26] MEDS: MELATONIN 5 MG TABLETS PO SCH (21:13)
[2022-12-26] MEDS: hydrOXYzine PAMOATE 25 MG CAPSULE (FP) PO PRN (21:13)
[2022-12-27] MEDS: hydrOXYzine PAMOATE 25 MG CAPSULE (FP) PO PRN (21:11)
[2022-12-27] MEDS: MELATONIN 5 MG TABLETS PO SCH (21:11)
[2022-12-27] MEDS: THIAMINE HCL 100 MG TABLET (FP) PO SCH (21:11)
[2022-12-28] MEDS: hydrOXYzine PAMOATE 25 MG CAPSULE (FP) PO PRN (21:07)
[2022-12-28] MEDS: THIAMINE HCL 100 MG TABLET (FP) PO SCH (21:07)
[2022-12-28] MEDS: MELATONIN 5 MG TABLETS PO SCH (21:07)
[2022-12-29] MEDS: hydrOXYzine PAMOATE 25 MG CAPSULE (FP) PO PRN (21:18)
[2022-12-29] MEDS: THIAMINE HCL 100 MG TABLET (FP) PO SCH (21:18)
[2022-12-29] MEDS: MELATONIN 5 MG TABLETS PO SCH (21:18)
[2022-12-30] MEDS: hydrOXYzine PAMOATE 25 MG CAPSULE (FP) PO PRN (21:26)
[2022-12-30] MEDS: THIAMINE HCL 100 MG TABLET (FP) PO SCH (21:27)
[2022-12-30] MEDS: MELATONIN 5 MG TABLETS PO SCH (21:27)
[2022-12-31] MEDS: THIAMINE HCL 100 MG TABLET (FP) PO SCH (21:29)
[2022-12-31] MEDS: hydrOXYzine PAMOATE 25 MG CAPSULE (FP) PO PRN (21:29)
[2022-12-31] MEDS: MELATONIN 5 MG TABLETS PO SCH (21:30)
[2023-01-01] MEDS: MELATONIN 5 MG TABLETS PO SCH (21:28)
[2023-01-01] MEDS: THIAMINE HCL 100 MG TABLET (FP) PO SCH (21:28)
[2023-01-01] MEDS: hydrOXYzine PAMOATE 25 MG CAPSULE (FP) PO PRN (21:29)
[2023-01-02] MEDS: MELATONIN 5 MG TABLETS PO SCH (21:08)
[2023-01-02] MEDS: THIAMINE HCL 100 MG TABLET (FP) PO SCH (21:08)
[2023-01-02] MEDS: hydrOXYzine PAMOATE 25 MG CAPSULE (FP) PO PRN (21:08)
[2023-01-03] MEDS: THIAMINE HCL 100 MG TABLET (FP) PO SCH (21:15)
[2023-01-03] MEDS: hydrOXYzine PAMOATE 25 MG CAPSULE (FP) PO PRN (21:15)
[2023-01-03] MEDS: MELATONIN 5 MG TABLETS PO SCH (21:15)
[2023-01-04] MEDS: MELATONIN 5 MG TABLETS PO SCH (21:21)
[2023-01-04] MEDS: THIAMINE HCL 100 MG TABLET (FP) PO SCH (21:21)
[2023-01-04] MEDS: hydrOXYzine PAMOATE 25 MG CAPSULE (FP) PO PRN (21:21)
[2023-01-05] MEDS: MELATONIN 5 MG TABLETS PO SCH (21:06)
[2023-01-05] MEDS: hydrOXYzine PAMOATE 25 MG CAPSULE (FP) PO PRN (21:07)
[2023-01-05] MEDS: THIAMINE HCL 100 MG TABLET (FP) PO SCH (21:07)
[2023-01-06] MEDS: hydrOXYzine PAMOATE 25 MG CAPSULE (FP) PO PRN (21:15)
[2023-01-06] MEDS: MELATONIN 5 MG TABLETS PO SCH (21:15)
[2023-01-06] MEDS: THIAMINE HCL 100 MG TABLET (FP) PO SCH (21:15)
[2023-01-07] MEDS: hydrOXYzine PAMOATE 25 MG CAPSULE (FP) PO PRN (21:20)
[2023-01-07] MEDS: THIAMINE HCL 100 MG TABLET (FP) PO SCH (21:20)
[2023-01-07] MEDS: MELATONIN 5 MG TABLETS PO SCH (21:20)
[2023-01-08 09:14] VITALS: RESP 18
[2023-01-08] MEDS: hydrOXYzine PAMOATE 25 MG CAPSULE (FP) PO PRN (21:22)
[2023-01-08] MEDS: MELATONIN 5 MG TABLETS PO SCH (21:22)
[2023-01-08] MEDS: THIAMINE HCL 100 MG TABLET (FP) PO SCH (21:22)
[2023-01-09 09:05] VITALS: BP 120/75; PULSE 92; TEMP 98
== END 2023-01-09 14:33 | disposition home or self-care (01) | DRG 772 ==
LOC: YASAS 16:55 → Y3W 17:03
PROVIDERS: ADMIT Allergy & Immunology; ATTEND Psychiatry & Neurology Pain Medicine
PROC: HZ42ZZZ Group Counseling for Substance Abuse Treatment, Cognitive-Behavioral (ICD-10-PCS; principal; 2022-12-11)
DX: F10.20 Alcohol dependence, uncomplicated (principal); F17.210 Nicotine dependence, cigarettes, uncomplicated; U07.1 COVID-19; I10 Essential (primary) hypertension; Z88.0 Allergy status to penicillin
CPT/HCPCS: 87635